=== PATIENT | male | born 1950 | race Two or more races ===

== ENCOUNTER 2024-05-08 18:35 | Emergency (ER) | payer BC, MEDICAID ==
[~2024-05-08] VITALS: Ht 167.6 cm; Wt 75.0 kg
[2024-05-08 18:36] VITALS: BP 188/165; PULSE 76; RESP 16; TEMP 98.2; O2SAT 100
[2024-05-08] MEDS ORDERED: ONDANSETRON 4MG ODT PO STA (19:57)
[2024-05-08 20:12] LABS: BASOPHILS % 0.2 % (0.0-2.0); EOSINOPHILS % 0.4 % (0.0-5.0); HEMOGLOBIN. 12.4 g/dL (14.0-18.0); LYMPHOCYTES % 30.4 % (20.0-50.0); MEAN CORPUSCULAR HEMOGLOBIN 30.6 pg (28.0-32.0); MEAN CORPUSCULAR HGB CONC 32.7 g/dL (31.0-37.0); MEAN CORPUSCULAR VOLUME 93.3 fL (80.0-94.0); MEAN PLATELET VOLUME 9.5 fl (7.4-10.4); MONOCYTES % 9.5 % (2.0-8.0); NEUTROPHILS % 59.5 % (40.0-76.0); PLATELET 110 x1000/uL (130-400); RED BLOOD CELL COUNT 4.07 mill/uL (4.7-6.1); WHITE BLOOD COUNT 6.5 x1000/uL (4.5-11.0)
[2024-05-08 20:17] LABS: CHLORIDE 105 mEq/L (98-107); POTASSIUM 3.3 mEq/L (3.5-5.1); SODIUM 140 mEq/L (136-145)
[2024-05-08 20:18] LABS: CALCIUM 10.3 mg/dL (8.7-10.4); CARBON DIOXIDE 30 mEq/L (21-32)
[2024-05-08 20:23] LABS: GLUCOSE 98 mg/dL (70-105); UREA NITROGEN BLOOD 17 mg/dL (9-23)
[2024-05-08 20:24] LABS: TROPONIN I HIGH SENSITIVITY 44 ng/L (3.0-53)
[2024-05-08 22:08] LABS: ALANINE AMINOTRANSFERASE 26 IU/L (10-49); ALBUMIN 4.8 g/dL (3.2-4.8); ASPARTATE AMINOTRANSFERASE 43 IU/L (<34); BILIRUBIN DIRECT 0.5 mg/dL (<=3.0); BILIRUBIN TOTAL 1.5 mg/dL (0.1-1.0); PROTEIN TOTAL 7.2 g/dL (6.0-8.3)
== END 2024-05-08 22:24 | disposition left against medical advice (07) ==
LOC: ER 18:35 → EDBEDREQ 23:45 → EDBEDREQTM 23:45 → CMPBEDREQ 05-09 01:08
DX: R55 Syncope and collapse (principal); R11.2 Nausea with vomiting, unspecified; I10 Essential (primary) hypertension
CPT/HCPCS: 36415; 74176; 80048; 80076; 84484; 85025; 93005; 99284